=== PATIENT | female | born 1965 | race Caucasian/White ===

== ENCOUNTER 2020-01-15 08:37 | Observation (INO) ==
--- NOTE | 2019-12-12 11:31 | PAT Medication Instructions ---
Medication Instructions Date of Service December 12, 2019 Home Medications aspirin [Aspir-81] 81 mg PO PM diclofenac sodium 2 g TOPICAL DAILY PRN diclofenac sodium 75 mg PO BID gabapentin 300 mg PO TID lisinopril 5 mg PO QAM mirabegron [Myrbetriq] 25 mg PO PM multivitamin [One A Day] 1 tab PO QAM sitagliptin [Januvia] 100 mg PO QAM tramadol 50 mg PO BID PRN ASK your surgeon for instructions diclofenac sodium 75 mg PO BID STOP taking 24 hours before surgery diclofenac sodium 2 g TOPICAL DAILY PRN DO NOT take the morning of surgery lisinopril 5 mg PO QAM multivitamin [One A Day] 1 tab PO QAM sitagliptin [Januvia] 100 mg PO QAM Take morning of surgery With a small sip of water, OTHERWISE NOTHING TO EAT OR DRINK AFTER MIDNIGHT: gabapentin 300 mg PO TID tramadol 50 mg PO BID PRN (okay to take up to 4 hours prior to surgery if needed) Take evening before surgery aspirin [Aspir-81] 81 mg PO PM gabapentin 300 mg PO TID mirabegron [Myrbetriq] 25 mg PO PM tramadol 50 mg PO BID PRN (if needed) Other Notes If you have any questions please call us at [phone] or [phone] or [phone] or [phone]
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
[2019-12-13 12:21] LABS: Basophils # (auto) 0.01 K/uL (0-0.2); Basophils % (auto) 0.2 %; Eosinophils # (auto) 0.04 K/uL (0-0.5); Eosinophils % (auto) 0.6 %; Hematocrit (blood only) 35.6 % (37-47); Hemoglobin 11.6 g/dL (12.0-16.0); Immature Granulocytes # (auto) 0.02 K/uL (0.00-0.02); Immature Granulocytes % (auto) 0.3 %; Lymphocytes # (auto) 1.34 K/uL (1.2-3.4); Mean Corpuscular Hgb Conc 32.6 g/dL (32-36); Mean Corpuscular Volume 85.8 fL (80-100); Mean Platelet Volume 8.5 fL (7.4-10.4); Monocytes # (auto) 0.36 K/uL (0.11-0.59); Monocytes % (auto) 5.6 %; Neutrophils # (auto) 4.62 K/uL (1.4-6.5); Neutrophils % (auto) 72.3 %; Platelet Count 188 K/uL (130-400); RDW Coefficient of Variation 14.9 % (11.5-14.5); RDW Standard Deviation 46.5 fL (36.4-46.3); Red Blood Count 4.15 M/uL (4.2-5.4); White Blood Count 6.39 K/uL (4.8-10.8)
[2019-12-13 12:25] LABS: Appearance Urine Clear (Clear); Bacteria Urine Automated Negative (Negative); Bilirubin Urine Negative (Negative); Blood Urine Negative (Negative); Color Urine Yellow; Epithelial Cell Urine Auto >30 /lpf (0-5); Glucose Urine UA Negative (Negative); Ketones Urine Negative (Negative); Leukocyte Esterase Urine Trace (Negative); Nitrite Urine Negative (Negative); Protein Urine Negative (Negative); RBC Urine Automated 0-4 /hpf (0-4); Specific Gravity Urine 1.018 (1.000-1.030); Urobilinogen Urine Negative (Negative)
[2019-12-13 12:26] LABS: Estimated Average Glucose 126 mg/dl
[2019-12-13 12:34] LABS: Partial Thromboplastin Time 28.4 Seconds (21.0-31.0); Prothrombin Time 10.6 Seconds (9.0-12.0)
[2019-12-13 13:45] LABS: Albumin Level 3.8 gm/dl (3.4-5.0); BUN Creatinine Ratio 19.7 (10-20); Calcium 9.9 mg/dl (8.5-10.1); Creatinine Clr Calc Pharmacy 59.4 ml/min; Est GFR (African American) 65.2; Est GFR (Non-African American) 56.3; Potassium 4.4 mmol/L (3.5-5.1)
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
[~2020-01-15 08:37] MED LIST: ACETAMINOPHEN 500 MG TAB PO SCH; BUPIVACAINE 0.5 % 5 MG/1 ML PF 10ML VIAL ONE; CeleBREX 200 MG CAP PO SCH; FAMOTIDINE 20 MG TAB PO SCH; GABAPENTIN 900 MG DOSE PO SCH; LR 500ML BOLUS, THEN 15ML/HR IV SCH; METOCLOPRAMIDE HCL 10 MG TABLET PO SCH; ROPIVACAINE 0.5% HCL/PF 150 MG, BUPIVACAINE 0.5% MPF 30 ML, EPINEPHrine 30MG/30ML (OR U... INFIL SCH; TRANEXAMIC ACID 1,000 MG **IV Pre-op IV SCH; ceFAZolin 2000MG 2,000 MG/15 ML SYR IV SCH; oxyCODONE HCL 10 MG TABCR (OxyCONTIN) PO SCH
--- NOTE | 2020-01-15 10:09 | History & Physical Bridge Note ---
Date of Service January 15, 2020 History & Physical Bridge Note I have examined the patient, reviewed the History & Physical and in the interval since the performance of the History & Physical I have noted the following changes of clinical significance: no changes noted
--- NOTE | 2020-01-15 11:48 | Ultrasound Report ---
LEFT LOWER EXTREMITY VENOUS DOPPLER HISTORY: Left calf pain. COMPARISON STUDY: None. FINDINGS: There is normal compressibility, flow, and augmentation within the left lower extremity drew p venous system. IMPRESSION: No DVT within the left lower extremity. ACT 112: Negative or not required by law. Electronically signed by: Savage Jaramillo M.D. 01/15/2020 11:47 AM
[2020-01-15] MEDS ORDERED: ATROPINE SULFATE 0.1 MG/ML 10ML SYR IV PRN (12:02)
[2020-01-15] MEDS ORDERED: ePHEDrine sulfate 50 MG/ML AMP IV PRN (12:02)
[2020-01-15] MEDS ORDERED: HYDROmorphone INJ 1 MG/ML SYRINGE IV PRN (12:02)
[2020-01-15] MEDS ORDERED: ONDANSETRON INJ 2 MG/ML 2 ML VIAL IV PRN ×2 (12:02→16:32)
[2020-01-15] MEDS: TRANEXAMIC ACID 1,000 MG **IV Intra-op IV SCH ×2 (12:34→14:37)
--- NOTE | 2020-01-15 14:56 | Post Operative Brief Note ---
Immediate Post Op Note v1 Date of Surgery January 15, 2020 Pre & Post Diagnosis Operation Date: 01/15/20 11:05 Pre-Op Diagnosis: Degenerative joint disease of the right hip Post-Op Diagnosis: Degenerative joint disease of the right hip I identified the patient and participated in the time-out.: Yes Procedure Operation Date: 01/15/20 11:05 Actual Procedures p Right Posterior Total Hip Arthroplasty(Right) - Sharad Dalal DO Surgeon Sharad Dalal DO Cooling Pipe Inspector Gustavo Jeffries Estimated Blood Loss 250 Findings Consistent with Post-Op Diagnosis Fluids 1400 cc LR Specimens femoral head Drains Hemovac Drain Anesthesia Type Spinal MAC Complications none Disposition Disposition: Recovery Room Overlapping Procedure I was present for: the critical portions of procedure. I was immediately available: during the entire case. Back up surgeon: was not required during procedure.
--- NOTE | 2020-01-15 15:01 | Operative Report ---
Post Operative Report Pre & Post Diagnosis Operation Date: 01/15/20 11:05 Pre-Op Diagnosis: Degenerative joint disease of the right hip Post-Op Diagnosis: Degenerative joint disease of the right hip I identified the patient and participated in the time-out.: Yes Procedure Operation Date: 01/15/20 11:05 Actual Procedures p Right Posterior Total Hip Arthroplasty(Right) - Sharad Dalal DO Surgeon Sharad Dalal DO Interior Surface Insulation Worker Gustavo Jeffries Estimated Blood Loss 250 Findings Consistent with Post-Op Diagnosis Fluids 1400 cc LR Specimens femoral head Anesthesia Type Spinal MAC Complications none Disposition Disposition: Recovery Room Indications The patient is a 54-year-old female who presents with severe progressive right hip DJD/AVN who has failed outpatient conservative treatments. I indicated the patient for a total hip replacement and the risks and benefits were explained in detail which included but not limited to infection, bleeding, blood clot, damage to surrounding bone, nerves, vessels, soft tissue, hip dislocation, failure of the prosthesis, leg length discrepancy, need for additional surgery and . The patient agreed to proceed with replacement of the hip and informed consent was obtained. Appropriate clearances were obtained. Description of Procedure COMPONENTS USED: [employer] hip system: Acetabulum size 48, femur size 7.5 reduced standard offset, femoral head 32-3.5, liner 4832, acetabular screw 15 mm x 1. Following induction of adequate spinal anesthesia, the patient was transferred to the OR table and placed in lateral decubitus position with left hip down. The right hip was prepped and draped in the typical sterile fashion. A timeout was performed, patient identified and site rabia confirmed. Appropriate antibiotics were given. A standard posterolateral/Apoorva-Langenbeck incision was made. Subcutaneous tissue was sharply dissected. Electrocautery was utilized for hemostasis. The fascia was incised throughout the length of the wound and retracted with the Charnley retractor. The bursa was taken down and the short external rotators were identified. The piriformis was tagged with #1 Vicryl. The short external rotators and capsule were divided from the posterior aspect of the femur using electrocautery. The posterior capsule was tagged with #1 Vicryl. Both external rotators and posterior capsule were swept posterior and protected, along with protecting the sciatic nerve. The hip was dislocated by flexion and internally rotation in a controlled manner and exposure of the femoral neck was gained with an old-style Hohmann and a blunt cobra retractor. A femoral cutting guide was utilized for making the appropriate level femoral neck cut with reciprocating saw. The femoral head was removed, measured and reserved on the back table. Next, attention was turned to the acetabulum. A posterior and anterior offset retractor was placed to gain adequate exposure. Acetabular labrum as well as posterior capsule elements were removed using electrocautery and forceps. Fovea centralis was cleared of all soft tissue. Sequential reaming was performed starting at 42 mm and carried up to a 47mm and decision was made to proceed with impaction of a 48 mm G7 Osteo-Ti cup. This was impacted and held using a single 15 mm bone screw. The trial kaela tabular liner was placed at this time. Next, attention was turned to the proximal femur where a Bovie and pickup was used to further clear short external rotators from their insertion on the femur. Box osteotome and canal finder was used to gain access to the femoral canal and the lateral reamer on power was used to further open the proximal lateral canal. Sequentially rasping was carried up to a 7.5 which gave good fit and fill of the proximal femur. A trial reduction was carried out with a reduced standard offset femoral neck component a 32-3.5 mm femoral head. The trial reduction was stable in all degrees of rotation with no [id number] impingement. The hip was dislocated, trial components were removed and access to the acetabulum was re-established. The trial liner was removed and the cup was irrigated to ensure all debris was removed. The final acetabular liner was inserted and properly seated in the cup. Access to the femur was once more gained and the size 7.5 femoral stem with reduced standard offset was impacted into position. The hip was once more assessed with the 32-3.5 mm femoral head. Stability was accessed and found to be excellent with equal leg lengths. The hip was dislocated for the last time and the final 32-3.5 ceramic femoral head was impacted in place and the hip was reduced. Range of motion was checked once again and found to be stable. A B etadine soak was performed. After 3 minutes, the hip was once more irrigated with copious sterile saline solution with bacitracin. The denisha-incisional soft tissue was injected utilizing [place] ortho mix which includes a combination of Ropivicaine 0.5% 150mg, Bupivicaine 0.5%/Epinephrine 1:200,000 30ml, Toradol 30mg, Dexamethasone 4mg, Ketamine 10mg, Clonidine 100mcg and NSS 30ml Orthomix solution. The piriformis, external rotators and capsule were repaired to the greater trochanter through bone tunnels using #5 FiberWire. The fascia was closed using #1 Vicryl. Hemovac drain placed. Subcutaneous tissue was closed using 2-0 Vicryl, and skin was closed with katelyn and a sterile dry dressing was applied which included jose incisional VAC. The patient tolerated the procedure well and was transported to PACU in stable condition. Due to the complex nature of the procedure, the entire surgery was performed with the operational assistance of Gustavo Jeffries PA-C. The account assistant, under direct supervision, was involved in the actual performance of all aspects of the surgical procedure including patient positioning, hemostasis, tissue retraction, instrument management and wound closure. I attest to the content of the Intraoperative Record and any orders documented therein. Any exceptions are noted below.
--- NOTE | 2020-01-15 16:06 | XRay Report ---
XR hip 1V RT w pelvis CLINICAL HISTORY: IN PACU - A/P PELVIS and LATERAL HIP COMPARISON: None. DISCUSSION: There are postsurgical changes of a total right hip arthroplasty. The acetabular femoral components appear well seated. There are overlying skin katelyn and surgical drains. There is gas pre sent within the soft tissues consistent with recent surgery. There is no evidence of dislocation. Old posttraumatic and postsurgical changes involve the left hemipelvis. IMPRESSION: Postsurgical changes of a total right hip arthroplasty. ACT 112: Negative or not required by law. Electronically signed by: Demetri Angel M.D. 01/15/2020 4:05 PM
--- NOTE | 2020-01-15 16:27 | Anesthesiology Progress Note ---
Date of Service January 15, 2020 Anesthesia Post Procedure Vital Signs Vital Signs: Temp Pulse Pulse Resp BP BP Pulse Ox 01/15/20 16:10 36.4 C L 73 18 99/66 L 97 01/15/20 15:55 36.1 C L 72 12 119/73 94 01/15/20 15:40 70 13 104/81 98 01/15/20 15:31 36.2 C L 78 23 111/66 95 01/15/20 08:55 37.2 C 82 18 155/84 H 98 Pain Intensity Right Hip: Pain Intensity: 6 Left Shoulder: Pain Intensity: 4 Transfer of Care Handoff Completed per policy Notes Mental Status: alert / awake / arousable and participated in evaluation Patient Amnestic to Procedure: Yes Nausea / Vomiting: adequately controlled Pain: adequately controlled Airway Patency, RR, SpO2: stable & adequate BP & HR: stable & adequate Hydration State: stable & adequate Anesthetic Complications: no major complications apparent and Pt Satisfied with anesthetic care
[2020-01-15] MEDS ORDERED: METOCLOPRAMIDE HCL INJ 5 MG/ML 2 ML VIAL IV PRN (16:32)
[2020-01-15] MEDS ORDERED: NALOXONE HCL 0.4 MG/1 ML VIAL/CARP IV PRN (16:32)
[2020-01-15] MEDS ORDERED: bisacodyL 10 MG SUPP PR PRN (16:32)
[2020-01-15] MEDS ORDERED: MAGNESIUM HYDROXIDE SUSP 30 ML UDC PO PRN (16:32)
[2020-01-15] MEDS ORDERED: oxyCODONE HCL IR 5 MG TAB (IMMEDIATE RELEASE) PO PRN (16:32)
[2020-01-15] MEDS ORDERED: HYDROmorphone INJ 0.5 MG/0.5 ML SYR IV PRN (16:32)
[2020-01-15] MEDS ORDERED: diphenhydrAMINE Capsule 25 MG CAP PO PRN (16:32)
[2020-01-15] MEDS ORDERED: PHARMACY GLYCEMIC MGMT CONSULT PRN (16:43)
--- NOTE | 2020-01-15 16:58 | Pharmacy Report ---
Glycemic Control Consultation - Date of Service January 15, 2020 - Scope Scope: Glycemic Pharmacist consulted for glycemic control and to write orders per [facility] inpatient glycemic control protocol. - Objective Weight: 91.824 kg Accuchecks BSG (last 24hrs): 01/15/20 15:43 POC Glucose 125 H HbA1c: Hemoglobin A1c 6.0 % (4.5-5.6) H 12/13/19 12:01 - Recent Pertinent Medications Outpatient Anti-diabetic Regimen: * Januvia 100 mg PO daily * A1c = 6.0 % (12/13/19) - Assessment & Plan Assessment & Plan: ASSESSMENT: * ND is a 54 year old female POD #0 s/p right posterior total hip arthroplasty * Received intra-operative intra-articular ortho mix containing d examethasone, no IV/PO steroids * Postoperative BSG of 125 mg/dL * Will utilize bolus insulin regimen only with conservative Novolog parameters * Fasting BSG of 107 mg/dL this morning - will hold basal insulin at this time PLAN FOR INPATIENT GLYCEMIC CONTROL: * Holding outpatient oral diabetes medications - can likely restart Januvia tomorrow * Basal insulin * Hold based on fasting BSG * Bolus insulin * NovoLog per scale ACHS or Q6hrs while NPO * Goal Range: Low 110 mg/dL - High 150 mg/dL * Correction Factor: 45 mg/dL/unit * Nutritional / Prandial insulin per carb ratio of 1 unit per 15 grams CHO consumed * Please note that the plan above was derived based on current level of insulin resistance and hospital stress. These recommendations are appropriate for inpatient admission only. Plan of care upon discharge will need to be reassessed to avoid potential outpatient hypo/hyperglycemia. Thank you.
[2020-01-15] MEDS ORDERED: GLUCOSE 40% GEL 15 GM TUBE PO PRN (17:00)
[2020-01-15] MEDS ORDERED: GLUCAGON FOR INJ 1 MG VIAL IM PRN (17:00)
[2020-01-15] MEDS ORDERED: DEXTROSE 50% 50 ML SYRINGE IV PRN (17:00)
[2020-01-15] MEDS ORDERED: GLUCOSE 10 TABS/TUBE PO PRN (17:00)
[2020-01-15] MEDS ORDERED: CARBOHYDRATES FOR HYPOGLYCEMIA PO PRN (17:00)
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
--- NOTE | 2020-01-15 17:48 | Orthopedic Progress Note ---
Date of Service January 15, 2020 Assessment & Plan (1) Degenerative joint disease of right hip: Status post right total hip arthroplasty -Ancef x 24 -DVT prophylaxis: SCDs, teds, ASA twice daily -Weight-bear as tolerated right lower extremity -PT/OT -Postoperative x-ray demonstrates a well line well fixed prosthesis without fracture or dislocation -A.m. labs -DC planning Admission and Anticipated Discharge Date Admission Date: January 15, 2020 Subjective Post Operative Progress Note Patient seen sitting up in bed, comfortable, denies complaints, pain well controlled, no acute issues. Review of Systems Review of Systems: All systems reviewed & are unremarkable except as noted in HPI & below Constitutional: as per Subjective / HPI Physical Exam Physical Exam: RLE NVSI +EHL/FHL/TA/GS SILT grossly, +2 DP pulse, compartments soft NT, dressing cdi. Constitutional: WD/WN, vitals as above Results & Data ([facility]) Vital Signs (Past 12 Hours) Vital Signs Temp Pulse Pulse Resp BP BP Pulse Ox 01/15/20 17:11 36.2 C L 76 16 114/75 95 01/15/20 16:43 36.2 C L 76 16 114/74 96 01/15/20 16:10 36.4 C L 73 18 99/66 L 97 01/15/20 15:55 36.1 C L 72 12 119/73 94 01/15/20 15:40 70 13 104/81 98 01/15/20 15:31 36.2 C L 78 23 111/66 95 01/15/20 08:55 37.2 C 82 18 155/84 H 98
[2020-01-15] MEDS: KETOROLAC TROMETHAMINE 15 MG/ML VIAL IV SCH (17:51)
[2020-01-15] MEDS: INSULIN ASPART 100 UNITS/ML 3 ML PEN SC SCH ×2 (17:55→20:51)
[2020-01-15] MEDS: SODIUM CHLORIDE 0.9% 1000ML 1,000 ML IV SCH (18:02)
[2020-01-15] MEDS: MIRABEGRON ER 25 MG TAB PO SCH ×2 (20:47→20:51)
[2020-01-15] MEDS: DOCUSATE SODIUM 100 MG CAP PO SCH (20:47)
[2020-01-15] MEDS: GABAPENTIN 300 MG CAP PO SCH (20:47)
[2020-01-15] MEDS ORDERED: SENNA 8.6 MG TAB PO SCH (21:00)
[2020-01-15] MEDS: ACETAMINOPHEN 500 MG TAB PO SCH (22:00)
[2020-01-15] MEDS: ceFAZolin 2000MG 2,000 MG/15 ML SYR IV SCH (22:00)
[2020-01-16] MEDS: SODIUM CHLORIDE 0.9% 1000ML 1,000 ML IV SCH (04:02)
[2020-01-16] MEDS: ACETAMINOPHEN 500 MG TAB PO SCH ×2 (06:12→13:40)
[2020-01-16] MEDS: KETOROLAC TROMETHAMINE 15 MG/ML VIAL IV SCH ×3 (06:12→12:47)
[2020-01-16] MEDS: ceFAZolin 2000MG 2,000 MG/15 ML SYR IV SCH (06:12)
[2020-01-16 06:23] LABS: Eosinophils # (auto) 0.01 K/uL (0-0.5); Eosinophils % (auto) 0.1 %; Hematocrit (blood only) 27.2 % (37-47); Hemoglobin 8.8 g/dL (12.0-16.0); Immature Granulocytes # (auto) 0.02 K/uL (0.00-0.02); Immature Granulocytes % (auto) 0.2 %; Lymphocytes # (auto) 0.76 K/uL (1.2-3.4); Lymphocytes % (auto) 9.3 %; Mean Corpuscular Hemoglobin 27.7 pg (25-34); Mean Corpuscular Hgb Conc 32.4 g/dL (32-36); Mean Corpuscular Volume 85.5 fL (80-100); Mean Platelet Volume 8.1 fL (7.4-10.4); Monocytes # (auto) 0.39 K/uL (0.11-0.59); Monocytes % (auto) 4.8 %; Neutrophils # (auto) 6.95 K/uL (1.4-6.5); Neutrophils % (auto) 85.6 %; Platelet Count 169 K/uL (130-400); RDW Coefficient of Variation 14.7 % (11.5-14.5); RDW Standard Deviation 45.7 fL (36.4-46.3); Red Blood Count 3.18 M/uL (4.2-5.4); White Blood Count 8.13 K/uL (4.8-10.8)
[2020-01-16 06:57] LABS: BUN Creatinine Ratio 21.2 (10-20); Calcium 8.5 mg/dl (8.5-10.1); Creatinine Clr Calc Pharmacy 61.5 ml/min; Est GFR (African American) 67.4; Est GFR (Non-African American) 58.2; Potassium 4.7 mmol/L (3.5-5.1)
[2020-01-16] MEDS: GABAPENTIN 300 MG CAP PO SCH ×2 (08:58→13:40)
[2020-01-16] MEDS: DOCUSATE SODIUM 100 MG CAP PO SCH (08:59)
[2020-01-16] MEDS ORDERED: SITagliptin PHOSPHATE 100 MG TAB PO SCH (09:00)
[2020-01-16] MEDS ORDERED: lisinopril 5 MG TAB PO SCH (09:00)
[2020-01-16] MEDS ORDERED: MULTIVITAMIN TAB PO SCH (09:00)
[2020-01-16] MEDS ORDERED: ASPIRIN 325 MG ECTAB PO SCH (09:00)
--- NOTE | 2020-01-16 09:18 | Orthopedic Progress Note ---
Date of Service January 16, 2020 Assessment & Plan (1) Degenerative joint disease of right hip: Status post right total hip arthroplasty POD#1 -Ancef x 24 -DVT prophylaxis: SCDs, teds, ASA twice daily -Weight-bear as tolerated right lower extremity -PT/OT -Postoperative x-ray demonstrates a well line well fixed prosthesis without fracture or dislocation -A.m. labs - as above, hgb 8.8 -Drain output - , will DC -DC planning - home with Admission and Anticipated Discharge Date Admission Date: January 15, 2020 Subjective Post Operative Progress Note Patient seen sitting up in bed, comfortable, denies complaints, pain well controlled, no acute issues. Denies F/C/N/V/SOB/CP. Review of Systems 2 Review of Systems: All systems reviewed & are unremarkable except as noted in HPI & below Constitutional: as per Subjective / HPI Physical Exam Physical Exam: RLE NVSI +EHL/FHL/TA/GS SILT grossly, +2 DP pulse, compartments soft NT, dressing cdi. Constitutional: WD/WN, vitals as above Results & Data ([facility]) Vital Signs (Past 12 Hours) Vital Signs Temp Pulse Resp BP Pulse Ox 01/16/20 06:56 36.5 C 77 16 112/72 97 01/16/20 03:54 36.7 C 83 16 111/71 98 01/16/20 00:16 36.8 C 80 18 103/67 97 Laboratory Results 01/16/20 01/16/20 01/16/20 Range/Units 08:20 06:01 06:01 WBC 8.13 (4.8-10.8) K/uL RBC 3.18 L (4.2-5.4) M/uL Hgb 8.8 L (12.0-16.0) g/dL Hct 27.2 L (37-47) % MCV 85.5 (80-100) fL MCH 27.7 (25-34) pg MCHC 32.4 (32-36) g/dL RDW Std Deviation 45.7 (36.4-46.3) fL RDW Coeff of Ilana 14.7 H (11.5-14.5) % Plt Count 169 (130-400) K/uL MPV 8.1 (7.4-10.4) fL Immature Gran % (Auto) 0.2 % Neut % (Auto) 85.6 % Lymph % (Auto) 9.3 % Gem % (Auto) 4.8 % Eos % (Auto) 0.1 % Baso % (Auto) 0.0 % Neut # (Auto) 6.95 H (1.4-6.5) K/uL Lymph # (Auto) 0.76 L (1.2-3.4) K/uL Gem # (Auto) 0.39 (0.11-0.59) K/uL Eos # (Auto) 0.01 (0-0.5) K/uL Baso # (Auto) 0.00 (0-0.2) K/uL Immature Gran # (Auto) 0.02 (0.00-0.02) K/uL Sodium 138 (136-145) mmol/L Potassium 4.7 (3.5-5.1) mmol/L Chloride 106 (98-107) mmol/L Carbon Dioxide 27 (21-32) mmol/L Anion Gap 5.0 (3-11) BUN 23 H (7-18) mg/dl Creatinine 1.08 (0.6-1.2) mg/dl Est Cr Clr Drug Dosing 61.5 ml/min Est GFR ( Amer) 67.4 Est GFR (Non-Af Amer) 58.2 BUN/Creatinine Ratio 21.2 H (10-20) Glucose 142 H (70-99) mg/dl POC Glucose 144 H (70-99) mg/dl Calcium 8.5 (8.5-10.1) mg/dl 01/15/20 01/15/20 01/15/20 Range/Units 20:43 17:10 15:43 WBC (4.8-10.8) K/uL RBC (4.2-5.4) M/uL Hgb (12.0-16.0) g/dL Hct (37-47) % MCV (80-100) fL MCH (25-34) pg MCHC (32-36) g/dL RDW Std Deviation (36.4-46.3) fL RDW Coeff of Ilana (11.5-14.5) % Plt Count (130-400) K/uL MPV (7.4-10.4) fL Immature Gran % (Auto) % Neut % (Auto) % Lymph % (Auto) % Gem % (Auto) % Eos % (Auto) % Baso % (Auto) % Neut # (Auto) (1.4-6.5) K/uL Lymph # (Auto) (1.2-3.4) K/uL Gem # (Auto) (0.11-0.59) K/uL Eos # (Auto) (0-0.5) K/uL Baso # (Auto) (0-0.2) K/uL Immature Gran # (Auto) (0.00-0.02) K/uL Sodium (136-145) mmol/L Potassium (3.5-5.1) mmol/L Chloride (98-107) mmol/L Carbon Dioxide (21-32) mmol/L Anion Gap (3-11) BUN (7-18) mg/dl Creatinine (0.6-1.2) mg/dl Est Cr Clr Drug Dosing ml/min Est GFR ( Amer) Est GFR (Non-Af Amer) BUN/Creatinine Ratio (10-20) Glucose (70-99) mg/dl POC Glucose 152 H 138 H 125 H (70-99) mg/dl Calcium (8.5-10.1) mg/dl
[2020-01-16] MEDS: INSULIN ASPART 100 UNITS/ML 3 ML PEN SC SCH ×2 (10:24→13:21)
[2020-01-16] MEDS ORDERED: CeleBREX 200 MG CAP PO SCH (21:00)
--- NOTE | 2020-01-17 23:12 | Discharge Summary ---
Date of Service January 16, 2020 Admission HPI Per Admitting Provider The patient is a 54 year old female who presents with complaints of severe right hip pain and DJD/AVN. The patient has failed outpatient conservative treatments to this point which included NSAIDs and a home exercise/walking program. The patient's pain and limited function have progressed to the point where they severely hinder their activities of daily living and they no longer tolerate exercise programs. They are requesting to proceed with total hip replacement surgery. Principal Diagnosis Right total hip replacement -Right hip DJD/AVN Discharge Exam RLE NVSI +EHL/FHL/TA/GS SILT grossly, +2 DP pulse, compartments soft NT, dressing cdi. Constitutional WD/WN, vitals as above Discharge Data Allergies Allergy/AdvReac Type Severity Reaction Status Date / Time metformin AdvReac Mild Diarrhea Verified 01/15/20 17:32 Consultations 01/10/20 11:04 Consult Hospitalist Routine 01/16/20 08:00 Consult Case Management - Discharge Planning Routine Procedures Performed Operation Date: 01/15/20 11:05 Actual Procedures p Right Posterior Total Hip Arthroplasty(Right) - Sharad Dalal DO Ordered Studies 01/15/20 10:09 US venous doppler LE Stat Hospital Course (1) Degenerative joint disease of right hip: The patient is a 54 -year-old female who presents with long standing history of severe right hip DJD/AVN and failed outpatient conservative treatments. The patient's symptoms have progressed to the point where it has been difficult to perform even normal activities of daily living. I indicated the patient for a right total hip arthroplasty, the risks, benefits and complications of the procedure include but not limited to infection, bleeding, damage to bone, nerves, vessels, surrounding soft tissue, may develop blood clots, loss of function, leg length discrepancy, dislocation, failure of the components, loosening of the components, the need for additional surgery and . The patient wished to proceed with surgery at this time and informed consent was obtained. Hospital Course: On 01/15/20 the patient was taken to the operating room, adequate anesthesia administered and underwent a right total hip arthroplasty. The patient tolerated the procedure well and was taken to the PACU in stable condition. Post-operatively the patient was started on a DVT ppx medication and given appropriate IV antibiotics. Consults were placed to physical therapy, occupational therapy and case management. On POD#1, the patient did well overnight and their pain was well controlled. Labs were drawn and the Hgb was 8.8. The patient progressed well with PT. Dressings were changed at this time and the incision was clean, dry and intact. The patients hospital stay was relatively uneventful and they were deemed stable by the orthopedic team and consultants to be discharged home with HH on 01/16/20. Discharge Instructions: Upon discharge the patient may weight bear as tolerates through their operative extremity. They were instructed to keep the incision clean and dry at all times. The patient may shower but should not submerge the incision, avoid bathing, pools and hot tubes. The patient was given a script for pain medication and should take as instructed. The patient was given a script for DVT ppx 325mg ASA BID and should take as directed. The patient was instructed to not drive or travel for long distances until cleared to do so. If the patient develops any symptoms of fevers, chills, nausea, vomiting, increased redness, swelling, pain or drainage from the surgical site, they should notify the office and/or proceed to the nearest emergency room. The patient should follow up in 10-14 days after surgery for their routine post-operative follow-up appointment and should call the office to confirm the date and time. Status post right total hip arthroplasty POD#1 -Ancef x 24 -DVT prophylaxis: SCDs, teds, ASA twice daily -Weight-bear as tolerated right lower extremity -PT/OT -Postoperative x-ray demonstrates a well line well fixed prosthesis without fracture or dislocation -A.m. labs - as above, hgb 8.8 -Drain output - , will DC -DC planning - home with Total Time Total Time Spent Total Time Spent (In Minutes): 30 Discharge Plan Discharge Items Patient Disposition: Home - Home Health Services Reason For Visit: POST SURGICAL CARE Discharge Diagnosis: Right total hip replacement -Right hip posttraumatic DJD/AVN Condition on Discharge: Good Activity: Per Instructions section Lifting: Wait until after follow-up appointment Bathing: Keep incision dry Bathing Comment: No bathing, pools or hot tubs Sexual Activity: Wait until after follow-up appointment Exercise/Sports: Wait until after follow-up appointment Driving/Machine Use: No driving Weightbearing: Full weightbearing Non-emergency contact: Primary Care Provider and Surgeon Call non-emergency contact if: you have any medication questions, your symptoms worsen, your pain is not controlled, your pain is worsening, your pain is unusual for you, your pain is concerning for you, you have a fever, your temperature is above 101, your wound has increased redness, your wound has increased drainage and your wound pain has increased Follow-up/Referrals: Sabine Gaming PA-C [Primary Care Provider] - Diet: Carb Consistent or DM2 Addtl Attending Provider Instructions: ACTIVITY RECOMMENDATIONS: SELF CARE INSTRUCTIONS AFTER TOTAL HIP REPLACEMENT Until the incision and soft tissues around your hip have healed, there is a possibility that the hip prosthesis could dislocate. A. Observe the following precautions to prevent dislocation: 1. Don't bend your hip greater than 90 degrees. 2. Avoid crossing your legs or ankles while standing or lying. 3. Sit with your feet placed 6 inches apart. 4. When sitting, keep your knees below your hips. Sit on a firm surface, avoid deep, soft chairs and couches. Use an elevated toilet seat in the bathroom. 5. Don't bend over at the waist. Use a long handled shoehorn and a sock aid to help you put on your shoes and socks. A credit front office developer can help you grape picker objects that are too high or too low to reach. 6. Keep car riding to a minimum for at least one month after surgery. B. Your balance may be shaky for a while. Use crutches or a walker until directed by your doctor. C. Use hand rails when walking on stairs. D. Wear low heeled shoes with non-slip soles. E. Be sure that your floors are free of things that could trip you - throw rugs, electrical cords, small objects. Avoid wet and waxed floors, especially with crutches and canes. F. Try to walk several times a day with rest periods between. G. Continue with all the exercises taught to you in the hospital. Again, make walking a part of your daily routine. SPECIAL CARE INSTRUCTIONS: VERY IMPORTANT TO READ AND REVIEW A. You may still be at risk for phlebitis and blood clots. 1. Wear surgical stockings (DARELL hose) for 2 weeks after surgery to improve circulation and reduce swelling. 2. Take Aspirin 325mg twice daily for 4 weeks or as directed by your doctor. This is your blood thinner. 3. High risk patients may be prescribed a stronger blood thinner if necessary. 4. If you are on Coumadin normally, your family doctor/project control officer should monitor your blood work. Expect a phone call the day of or the day after bloodwork is drawn to adjust your dosage. B. You must take antibiotics before having dental work, bladder, bowel and other surgery. Your doctor will provide you with a permanent card to carry describing precautions. C. Call [facility] if you have a fever, redness or swelling around the incision, cloudy drainage from incision, or sudden increase in pain in your hip, not relieved by your regular pain medication. D. Please call the office at if you have any concerns or questions about your operation or recovery. * YOU MAY SHOWER, NO TUB BATHS UNTIL CLEARED BY YOUR DOCTOR. * WEAR DARELL HOSE 20 HOURS PER DAY FOR 2 WEEKS. * YOU SHOULD USE A WALKER OR CRUTCHES FOR 2-4 WEEKS. THIS WILL HELP PREVENT STRAIN ON YOUR HIP MUSCLE AND ALLOW IT TO HEAL PROPERLY. YOU MAY WEAN TO A CANE TOLERATED. * MOST PATIENTS WILL HAVE HOME NURSING FOR THERAPY. IF YOU DECIDE TO DO OUTPATIENT PHYSICAL THERAPY, PLEASE SCHEDULE THIS 3 TIMES PER WEEK. *TIAGO incisional vac is a special dressing covering your incision. This dressing provides a sterile dry environment while you are healing. The dressing is to be left in place for 7 days post-operatively. Your home nurse or surgeon will remove. If you develop any redness or blisters or have any questions notify your surgeon immediately. FOLLOW UP VISIT: If appointment is not already scheduled: Please call [facility] to make a follow-up appointment for 2 weeks after your surgery at . Pending Studies at Discharge: No Stand-Alone Forms: [employer], Opioid Pain Management, Smoking Cessation Medications and DC Order Prescriptions: New celecoxib [Celebrex] 200 mg Capsule 200 mg PO BID PRN (Reason: pain/inflammation) Qty: 28 RF: 0 acetaminophen 500 mg Tablet 1,000 mg PO Q8 PRN (Reason: pain/fevers) Qty: 90 RF: 0 aspirin [Ecotrin] 325 mg Tablet,Delayed Release (Dr/Ec) 325 mg PO BID Qty: 56 RF: 0 oxycodone 5 mg Tablet 5 mg PO Q6H MDD 4 PRN (Reason: pain) Qty: 30 RF: 0 sennosides [Senokot] 8.6 mg Tablet 17.2 mg PO HS PRN (Reason: constipation) Qty: 28 RF: 0 Continued multivitamin Tablet 1 tab PO QAM RF: 0 gabapentin 300 mg Capsule 300 mg PO TID RF: 0 lisinopril 5 mg Tablet 5 mg PO QAM RF: 0 Januvia 100 mg Tablet 100 mg PO QAM RF: 0 diclofenac sodium 1 % Gel 2 g TOPICAL DAILY PRN (Reason: Pain) RF: 0 Myrbetriq 25 mg Tablet Extended Release 24 Hr 25 mg PO PM RF: 0 Discontinued aspirin [Aspir-81] 81 mg Tablet,Delayed Release (Dr/Ec) 81 mg PO PM RF: 0 tramadol 50 mg Tablet 50 mg PO BID PRN (Reason: Pain) RF: 0 diclofenac sodium 75 mg Tablet,Delayed Release (Dr/Ec) 75 mg PO BID RF: 0 Discharge Orders: Discharge Order (Routine); Ordered 01/16/20 Ordered By: Reggie Banda/Other Patient Handouts: DVT Post Op Prevention, Managing Type 2 Diabetes, Total Hip Replacement, Managing Diabetes: The A1C Test Admission Data Admit Date/Time: 01/15/20 15:31 Attending Provider: Sharad Dalal Admit Provider: Sharad Dalal Primary Care Provider: Sabine Gaming Other Providers: Lyndsey Lanrdy ; [facility] Other Interventions: Discharge Summary Assessment (RN) Last Done: 01/16/20 10:34
--- NOTE | 2020-02-04 08:02 | Coding Query ---
A supporting diagnosis is required for the test/procedure performed on this patient in order for us to be reimbursed by the patient's insurance. Please provide a supporting diagnosis for the following test/procedure listed below next to the test name along with your signature. *If there is no additional diagnosis for this patient that would support the following test/procedure please document that below next to the test/procedure. Test(s)/Procedure(s) that require a supporting diagnosis: * 24168 VENOUS REFULX LWR EXT UNILAT DIAGNOSIS: Calf pain - r/o DVT DATE OF SERVICE: 01/15/20 Provider Signature: Date: Thank you Sandeep [employer] Once completed, please kindly fax back to [phone] For questions please call [phone] MARYAN
== END 2020-01-16 17:04 | disposition home health service (06) ==
LOC: ASU 08:37 → 3E 08:37
DX: M87.9 Osteonecrosis, unspecified; E78.5 Hyperlipidemia, unspecified; I10 Essential (primary) hypertension; Z79.899 Other long term (current) drug therapy; E11.40 Type 2 diabetes mellitus with diabetic neuropathy, unspecified; M79.662 Pain in left lower leg; M19.90 Unspecified osteoarthritis, unspecified site; Z79.82 Long term (current) use of aspirin; Z88.8 Allergy status to other drugs, medicaments and biological substances; M16.51 Unilateral post-traumatic osteoarthritis, right hip